=== PATIENT | female | born 2000 | race Caucasian/White ===

== ENCOUNTER → 2023-03-12 | Outpatient (CLI) | payer BC, SELFPAY ==
[2023-03-22 20:46] LABS: HPV Reflexed? NOT INDICATED
== END | disposition home or self-care (01) ==
LOC: LABSPEC 16:09
PROVIDERS: Visit Provider Student in an Organized Health Care Education/Training Program
DX: Z12.4 Encounter for screening for malignant neoplasm of cervix (principal)
CPT/HCPCS: 88175; G0145

== ENCOUNTER → 2023-04-29 | Outpatient (CLI) | payer BC, SELFPAY ==
[2023-04-29 16:07] LABS: Hematocrit 44.3 % (37-47); Hemoglobin 14.7 g/dL (12.0-15.0); Mean Corp Hgb Conc 33.2 g/dL (32-36); Mean Corpuscular Hgb 28.8 pg (27.0-32.0); Mean Corpuscular Volume 86.9 fL (81-99); Mean Platelet Vol. 9.5 fl (6.2-12.0); Platelet Count 360 K/mm3 (150-450); RBC Distribution Width CV 11.3 % (11.6-14.6); White Blood Count 6.4 K/mm3 (4.4-11.0)
== END | disposition home or self-care (01) ==
LOC: PAT 05-28 16:15
PROVIDERS: PCP Nurse Practitioner Family; Referring Provider Student in an Organized Health Care Education/Training Program; Visit Provider Student in an Organized Health Care Education/Training Program
DX: Z01.818 Encounter for other preprocedural examination (principal)
CPT/HCPCS: 36415; 85027; 86850; 86900; 86901; 93005

== ENCOUNTER 2023-06-06 09:37 | Day surgery (SDC) | payer BC, SELFPAY ==
--- NOTE | 2023-06-06 07:11 | HP.PCM.OB_ITS ---
History and Physical Date of Admission: 06/06/23 HPI: 22-year-old female plan for bilateral ovarian cystectomies for persistent ovarian cyst and pelvic pain. Denies headache or vision changes, chest pain or shortness of breath, nausea or vomiting, diarrhea constipation, fevers or chills. PROFESSIONAL HEALTHCARE REPRESENTATIVE history: G0 Medical history: 1. Anxiety/depression Surgical history: 1. [place] tooth extraction Allergies: Iodine Medications: 1. Sprintec 2. Lorazepam Family history: No history of issues with anesthesia, blood clots or bleeding di sorders Social history: Denies alcohol use. Reports tobacco use. Occasional marijuana use. Review of system: Negative otherwise stated above Physical exam: Vitals pending General: No acute distress HEENT: Normocephalic/atraumatic, PERRLA Cardiac: Regular rate and rhythm Respiratory: Clear to auscultation bilaterally Abdomen: Soft, nontender Extremities: No edema Neurologic: Cranial nerves II through XII grossly intact, no focal deficits Musculoskeletal: Moves all extremities equally Assessment/plan: 22-year-old female plan for bilateral ovarian cystectomies for persistent ovarian cyst and pelvic pain. All risk, benefits, alternatives were discussed with the patient. Risks include but are not limited to: Risk of bleeding to the point of transfusion, infection, injury to surrounding tissue including bowel/bladder potentially requiring prolonged Lynch catheter use/major abdominal vessels, VTE, ICU admission. Patient aware and consented. Patient had negative cardiac work-up after she reported some chest pain in March 2023. Has been evaluated by cardiology. Discomfort resolved, likely secondary to anxiety.
[2023-06-06] MEDS: Lactated Ringers 1,000 ML 15 ML IV (10:08)
[2023-06-06 10:09] VITALS: BP 116/77; PULSE 78; RESP 17; TEMP 36.3; O2SAT 98; BMI 27.2
[2023-06-06 10:49] LABS: Internal QC Validated? YES +Cl - CLEAR BKGD; Pregnancy, Urine Negative Negative
--- NOTE | 2023-06-06 11:15 | OV_PTH ---
PATIENT: VIOLA WALKER LOC: [facility] – [place] U#:[id number] AGE/SX: 22/F ROOM: RE06/06/[address]: Dr. Atiya Leggett DO : 2000 BED: DIS: 06/06/2023 SPEC #: [id number] RECD: 06/06/23 13:02 STATUS: JOHN REEdwar #: [id number] VERÓNICA: 06/06/23 11:[address]: Atiya Leggett DEPT: SURGICAL PATHOLOGY RECD BY: Abelardo Johnson ENTERED: 06/06/23 13:47 SP TYPE: OVARY OTHR DR: Geetha Linder, GAME TRAPPER-C Tissues: OVARIAN CYST Procedures: Surgery Specimen Level V HEADER OPERATION: Laparoscopic removal of right paratubal cyst, right salpingectomy PRE-OP DIAGNOSIS: Persistent ovarian cyst and pelvic pain TISSUE SUBMITTED: Right tubal cyst and right fallopian tube MICROSCOPIC DIAGNOSIS Right fallopian tube and cyst, salpingectomy: Serous cystadenoma of ovarian origin. Fallopian tube with no pathologic change. AM:agnes 06/07/2023 COMMENT Case has been reviewed in consultation with Dr. Brewster who concurs with the above diagnosis. IDC:KATHLEEN MICROSCOPIC DESCRIPTION Slides are reviewed. GROSS DESCRIPTION Received in fixative is one container labeled with the patient's name and designated right tubal cyst and right fallopian tube. The specimen consists of a fallopian tube and detached cyst. The right fallopian tube measures 9.0 cm in length and 0.5 cm in diameter. Sections reveal unremarkable cut surfaces. The detached cyst measures 4.0 x 3.5 x 1.0 cm. The external surface is smooth without any papillation and inked black. The inner cyst wall is also smooth without any papillation. The cyst contains a small amount of mucoid fluid and comprised of unilobular cyst. The cyst wall measures 0.1 cm in thickness. Warehouse Sorter sections are submitted in two cassettes as follows: 1 - fallopian tube, 2 - cyst. / KATHLEEN:agens 06/06/2023 TC:1 CPT: 40620
--- NOTE | 2023-06-06 11:45 | OP.PCM_ITS ---
Report of Operation Date of Procedure: 06/06/23 Pre-Operative Diagnosis: Ovarian cysts, pelvic pain Post-Operative Diagnosis: Ovarian cysts, pelvic pain Surgery/Procedure Performed:: Laparoscopic excision of right paratubal cyst, right salpingectomy. Description of Surgical Findings:: Normal-appearing external genitalia. Normal-appearing cervix. Moderate uterine descensus. Normal-appearing left fallopian tube and ovary. Normal-appearing right ovary. Enlarged right paratubal cyst. Right fallopian tube stretch and extended surrounding the right paratubal cyst, difficult to discern plane between the cyst and fallopian tube. Surgeon: Atiya Leggett credit compliance officer: Keith Berman Type of Anesthesia: General Specimen's removed: ovarian cyst Estimated Blood Loss (mL): 5 cc Fluids Replaced: 900cc Description of Procedure: Indication/risk/benefits: 22-year-old female plan for bilateral ovarian cystectomies for persistent ovarian cyst and pelvic pain. All risk, benefits, alternatives were discussed with the patient. Risks include but are not limited to: Risk of bleeding to the point of transfusion, infection, injury to surrounding tissue including bowel/bladder potentially requiring prolonged Lynch catheter use/major abdominal vessels, VTE, ICU admission. Patient aware and consented. Procedure: Patient taken to the operating room and placed under general anesthesia. Patient placed in the dorsal lithotomy position and prepped and draped in the usual sterile fashion. Lynch catheter placed. Weighted speculum placed in posterior vagina and Hand retractor used to visualize the cervix. Anterior lip of the cervix grasped with Allis clamp. Cervix sequentially dilated and Sargis manipulator placed. Gloves were changed and attention turned to the anterior abdominal wall. Vertical supraumbilical incision made with scalpel and 5 mm trocar placed under direct visualization. Abdomen insufflated. Right and left lower quadrant 5 mm trocars placed. Inspection of the abdominal cavity noted findings stated above. Right fallopian tube grasped paratubal cyst removed along the mesosalpinx using LigaSure device. [place] of the paratubal cyst noted to be separate from the right ovary, LigaSure device used to sever the connection between the right ovary and paratubal cyst. Fallopian tube inspected multiple times. Due to stretching and elongation of the fallopian tube over the paratubal cyst, some coagulation of the lower portion of the fallopian tube was noted along with slight purple discoloration of the fimbriated end. Decision for salpingectomy made based on the concern for potential future ectopic and possible decreased blood flow based on the coagulation and purple discoloration of the fimbriae. Fallopian tube removed along mesosalpinx to the cornua using LigaSure device. Fallopian tube removed through right lower quadrant trocar. Supraumbilical trocar replaced with 10 mm trocar. Endo Catch bag placed and paratubal cyst placed into the bag. Bag elevated to the level of the skin and cyst incised, draining clear fluid. Cyst removed. Abdomen desufflated. Supraumbilical fascia closed with a [id number] suture. Skin closed with subcuticular stitch and skin glue. Uterine manipulator and Lynch catheter removed. UOP: 150 cc clear urine Complications None Admit VTE Documentation VTE Mechan Device Prophylaxis: SCD's
--- NOTE | 2023-06-06 11:47 | DCINST_ITS ---
Discharge Instructions Diet Discharge Diet: No restrictions Activity Discharge Activity: Return to Normal Activity and May Shower May resume sexual activity in: 2 weeks Weight Bearing Status: Weight bearing as tolerated Lifting Restrictions: No greater than 15 pounds Dressing / Incision Call your doctor if your incision/area has: Continuous Slow Oozing, Increased Pain/ Swelling, Increased Redness and Foul Smelling Discharge Call your doctor if you observe: Fever of 101 or Higher, Inability to urinate, Using more than 1 pad per hour, Shortness of breath, Chest pain, Calf discomfort and Uncontrolled pain Cleanse incision/area with: Soap & Water and Keep Dressing Clean & Dry Follow Up Care Please Follow Up With: Atiya Leggett DO When: 2 weeks post operative visit. Test Results: Test results from this visit will be discussed in further detail at your follow- up appointment, if applicable. Discharge Plan Admission Primary Reason for Your Visit: Ovarian cystectomy Attending Provider: Atiya Leggett Primary Care Provider: Geetha Linder NP Discharge Orders/Prescriptions Prescriptions: New oxycodone 5 mg tablet 5 mg PO Q6H PRN (Reason: pain (scale score 7-10)) 3 Days Qty: 5 0RF Continued norgestimate-ethinyl estradiol [Sprintec (28)] 0.25-35 mg-mcg tablet 1 tab PO DAILY Patient Comments: TAKE ONE TABLET BY MOUTH EVERY DAY lorazepam 0.5 mg tablet 0.5 mg PO PRN PRN (Reason: ANXIETY') Patient Comments: TAKE ONE TABLET BY MOUTH NEEDED Referrals / Follow Up: Geetha Linder NP, [employer] [facility] [Primary Care Provider] - Disposition Disposition (needs filled in before D/C Order can be placed): Home, Self Care
--- NOTE | 2023-06-06 11:47 | PCM.DC ---
Discharge Instructions Follow Up Care Test Results: Test results from this visit will be discussed in further detail at your follow-up appointment, if applicable. Discharge Plan Admission Attending Provider: Atiya Leggett Primary Care Provider: Geetha Linder NP Discharge Orders/Prescriptions Prescriptions: No Action norgestimate-ethinyl estradiol [Sprintec (28)] 0.25-35 mg-mcg tablet 1 tab PO DAILY Patient Comments: TAKE ONE TABLET BY MOUTH EVERY DAY lorazepam 0.5 mg tablet 0.5 mg PO PRN PRN (Reason: ANXIETY') Patient Comments: TAKE ONE TABLET BY MOUTH NEEDED Referrals / Follow Up: Geetha Linder NP, [employer]CH[employer] SALES [employer]PRESENTATIVES-[facility] [Primary Care Provider] - Disposition Disposition (needs filled in before D/C Order can be placed): Home, Self Care
[2023-06-06 12:45] VITALS: BP 115/75; BP 116/77; PULSE 93; RESP 18; TEMP 36.2; O2SAT 97
[2023-06-06 12:50] VITALS: BP 116/77; BP 116/81; PULSE 81; RESP 18; O2SAT 98
[2023-06-06 13:00] VITALS: BP 116/77; BP 121/77; PULSE 80; RESP 18; O2SAT 97
[2023-06-06 13:14] VITALS: BP 115/72; BP 116/77; PULSE 69; RESP 18; TEMP 36.3; O2SAT 99
[2023-06-06] MEDS: Acetaminophen 500 MG Tablet 1000 MG PO (13:34)
[2023-06-06] MEDS: oxyCODONE 5 MG Tablet PO (14:01)
[2023-06-06 14:51] VITALS: BP 116/77; BP 127/75; PULSE 75; RESP 16; TEMP 36.6; O2SAT 100
== END 2023-06-06 15:00 | disposition home or self-care (01) ==
LOC: SDC 09:38 → AC 09:39
PROVIDERS: PCP Nurse Practitioner Family; Referring Provider Student in an Organized Health Care Education/Training Program; Visit Provider Student in an Organized Health Care Education/Training Program
PROC: (CPT 58661; principal; 2023-06-06 11:00)
DX: D27.0 Benign neoplasm of right ovary (principal); N83.8 Other noninflammatory disorders of ovary, fallopian tube and broad ligament; R10.2 Pelvic and perineal pain; F12.90 Cannabis use, unspecified, uncomplicated; F17.290 Nicotine dependence, other tobacco product, uncomplicated
CPT/HCPCS: 58661; 58662; 00840; 81025; 85027; 86850; 86900; 86901; 88305; 88307; J7120; J2405

== ENCOUNTER → 2024-04-20 | Outpatient (CLI) | payer BC, SELFPAY ==
[2024-04-20 09:10] LABS: Absolute Lymphocyte Count 2.45 X10^3/uL (0.83-4.51); Absolute Neutrophil Count 3.6 X10^3/uL (2.0-7.7); Basophil# 0.05 X10^3/uL; Basophil% 0.7 % (0-1); Eosinophil# 0.19 X10^3/uL; Eosinophils% 2.8 % (0-5); Hematocrit 43.3 % (37-47); Hemoglobin 14.7 g/dL (12.0-15.0); Lymphocyte # 2.45 X10^3/ul (0.83-4.51); Lymphocyte % 36.2 % (19-41); Mean Corp Hgb Conc 33.9 g/dL (32-36); Mean Corpuscular Hgb 28.4 pg (27.0-32.0); Mean Corpuscular Volume 83.8 fL (81-99); Mean Platelet Vol. 9.2 fl (6.2-12.0); Monocyte# 0.49 X10^3/uL; Monocyte% 7.2 % (0-10); NRBC Flagged by Analyzer 0 % (0-5); Neutrophil # 3.58 X10^3/uL (2.7-7.7); Platelet Count 322 K/mm3 (150-450); RBC Distribution Width CV 11.5 % (11.6-14.6); RBC Distribution Width SD 34.9 fl (35.1-43.9); Red Blood Count 5.17 M/mm3 (4.2-5.4); White Blood Count 6.8 K/mm3 (4.4-11.0)
[2024-04-20 10:09] LABS: ALB/GLOB Ratio 0.9 RATIO (0.9-2.4); AST(SGOT) 13 U/L (15-37); Alanine Aminotransfer ALT/SGPT 16 U/L (13-56); Albumin, Serum 3.6 g/dL (3.2-5.0); Alkaline Phosphatase 63 U/L (45-117); Anion Gap 6 (5-15); BUN 12 mg/dL (7-18); BUN/Creat Ratio 12.9 RATIO (10-20); Calcium,Total 9.2 mg/dL (8.5-10.1); Chloride 108 mmol/L (98-107); Cholesterol 233 mg/dL (200); Creatinine, Serum 0.93 mg/dL (0.55-1.02); EST Glomerular Filtration Rate 79 mL/min (>60); Est Glom Filt Rate - Afr Amer 95 mL/min (>60); Globulin 3.8 g/dL (2.2-4.2); Glucose 89 mg/dL (74-106); High Density Lipoprotein 58 mg/dL; Potassium 4.3 mmol/L (3.5-5.1); Protein, Total 7.4 g/dL (6.4-8.2); Sodium Level 135 mmol/L (136-145); Thyroid Stim Hormone (TSH) 3.92 uIU/mL (0.358-3.74); Triglycerides 110 mg/dL; Very Low Density Lipoprotein 22 mg/dL (5-40)
== END | disposition home or self-care (01) ==
LOC: LAB 08:53
PROVIDERS: PCP Nurse Practitioner Family; Referring Provider Internal Medicine Cardiovascular Disease; Visit Provider Internal Medicine Cardiovascular Disease
DX: R00.0 Tachycardia, unspecified (principal)
CPT/HCPCS: 36415; 80053; 80061; 84443; 85025

== ENCOUNTER → 2024-04-23 | Outpatient (CLI) | payer BC, SELFPAY ==
[2024-04-23 10:40] LABS: T4 Total, Thyroxin 12.2 ug/dL (4.8-13.9)
== END | disposition home or self-care (01) ==
LOC: LAB 08:28
PROVIDERS: PCP Nurse Practitioner Family; Referring Provider Internal Medicine Cardiovascular Disease; Visit Provider Internal Medicine Cardiovascular Disease
DX: R79.89 Other specified abnormal findings of blood chemistry (principal)
CPT/HCPCS: 36415; 84436

== ENCOUNTER 2024-05-15 12:18 | Outpatient (CLI) | payer BC, SELFPAY ==
--- NOTE | 2024-05-15 17:54 | STRESSREP ---
Stress Test Report Exercise stress test. 23-year-old lady with a history of tachycardia Stress protocol: Resting EKG demonstrates normal sinus rhythm with a rate of 85 bpm resting blood pressure is 118/84 mmHg. The patient exercised according to the regular Ran protocol for a total duration of 8 minutes attaining a maximum heart rate of 164 bpm which was 83% of maximum predicted heart rate; the maximum workload was 10.1 metabolic equivalents. At rest there were no ST or T wave changes noted to suggest ischemia and at peak exercise upsloping ST changes only were noted which did not meet the criteria for ischemia. No clinical angina was noted the test was terminated due to the target heart rate being achieved/fatigue. The peak blood pressure was 170/80 mmHg. Rate-pressure product was 28,000. Conclusion: Stress test with no EKG criteria for ischemia at a high workload. Good functional capacity. Good chronotropic response to exercise as well as recovery. No arrhythmias noted.
== END 2024-05-15 23:59 | disposition home or self-care (01) ==
PROVIDERS: PCP Nurse Practitioner Family; Referring Provider Internal Medicine Cardiovascular Disease; Visit Provider Internal Medicine Cardiovascular Disease
DX: R00.0 Tachycardia, unspecified (principal); I49.9 Cardiac arrhythmia, unspecified
CPT/HCPCS: 93017